=== PATIENT | male | born 1965 | race Caucasian/White ===

== ENCOUNTER → 2016-11-10 | Outpatient (REF) | payer OTHER ==
[2016-11-10 12:13] LABS: EOS # 0.3 K/mm3 (0.0-0.50); EOS % 5.2 % (0.0-3.0); LARGE UNSTAINED CELL # 0.1 K/mm3 (0.0-0.4); LARGE UNSTAINED CELL % 1.7 % (0.0-4.0); LYMPH # 1.6 K/mm3 (1.5-4.5); LYMPH % 29.8 % (24.0-44.0); MEAN CORPUSCULAR HGB CONC 33.2 g/dl (32.0-36.5); MEAN CORPUSCULAR VOLUME 96.3 fl (80.0-96.0); MONO # 0.3 K/mm3 (0.0-0.8); MONO % 5.2 % (0.0-5.0); NEUTROPHILS # 3.1 K/mm3 (1.8-7.7); PLATELET COUNT, AUTOMATED 281 k/mm3 (150-450); RED CELL DISTRIBUTION WIDTH 12.6 % (11.5-14.5); WHITE BLOOD COUNT 5.4 K/mm3 (4.0-10.0)
[2016-11-10 12:41] LABS: ALBUMIN 3.9 GM/DL (3.2-5.2); ALBUMIN/GLOBULIN RATIO 1.11 (1.00-1.93); ALKALINE PHOSPHATASE 113 U/L (45-117); ALT/SGPT 44 U/L (12-78); ANION GAP 6 MEQ/L (8-16); AST/SGOT 21 U/L (15-37); BILIRUBIN,TOTAL 0.7 MG/DL (0.2-1.0); BLOOD UREA NITROGEN 10 MG/DL (7-18); CALCIUM LEVEL 8.5 MG/DL (8.5-10.1); CARBON DIOXIDE LEVEL 27 MEQ/L (21-32); CHLORIDE LEVEL 105 MEQ/L (98-107); CREATININE FOR GFR 0.85 MG/DL (0.70-1.30); GLOMERULAR FILTRATION RATE > 60.0 (>56); GLUCOSE, FASTING 81 MG/DL (70-105); PERCENT SATURATION 30.4 % (19.7-37.4); POTASSIUM SERUM 4.5 MEQ/L (3.5-5.1); SODIUM LEVEL 138 MEQ/L (136-145); TOTAL IRON BINDING CAPACITY 405 UG/DL (250-450); TOTAL PROTEIN 7.4 GM/DL (6.4-8.2)
[2016-11-10 13:34] LABS: ERYTHROCYTE SEDIMENTATION RATE 4 mm/hr (0-20)
[2016-11-11 15:16] LABS: Lyme Disease IgG/IgM Antibodie <0.91 ISR (0.00-0.90); Lyme Disease IgM Ab Quantitati <0.80 index (0.00-0.79)
== END ==
LOC: M LABDRAW1 11:32
PROVIDERS: ATTEND Internal Medicine Rheumatology
DX: M35.9 Systemic involvement of connective tissue, unspecified (principal); R53.83 Other fatigue; E83.40 Disorders of magnesium metabolism, unspecified; Z79.899 Other long term (current) drug therapy

== ENCOUNTER → 2017-05-09 | Outpatient (CLI) | payer OTHER ==
--- NOTE | 2017-05-10 04:29 | REP ---
Clinical: Worsening back pain. Technique: AP, lateral, bilateral oblique and coned-down views of the lumbosacral spine. Comparison: 11/10/2016. Findings: Alignment and lordosis maintained. Moderate to early advanced and mildly progressive multilevel degenerative changes are appreciated including osteophytosis, endplate sclerosis and disc space narrowing. Hypertrophic facet changes at L5-L1 are also identified. No acute fracture / compression injury or subluxation. Impression: Moderate to early advanced multilevel degenerative changes. Findings appear slightly progressive when compared to prior examination. Signed by Rosendo Connor MD 05/10/2017 04:21 A
== END ==
LOC: M LRY 11:46
PROVIDERS: ATTEND Physician Assistant Medical
DX: M54.5 Low back pain (principal); W19.XXXD Unspecified fall, subsequent encounter; Y92.9 Unspecified place or not applicable; X58.XXXD Exposure to other specified factors, subsequent encounter; Y93.9 Activity, unspecified; Y99.8 Other external cause status

== ENCOUNTER → 2018-04-23 | Outpatient (REF) | payer OTHER ==
[2018-04-23 10:50] LABS: HEMATOCRIT 43.7 % (42.0-52.0); HEMOGLOBIN 15.4 g/dl (13.5-17.5); MEAN CORPUSCULAR HEMOGLOBIN 33.5 pg (27.0-33.0); MEAN CORPUSCULAR HGB CONC 35.2 g/dl (32.0-36.5); PLATELET COUNT, AUTOMATED 267 10^3/uL (150-450); RED CELL DISTRIBUTION WIDTH 12.2 % (11.5-14.5)
[2018-04-23 11:20] LABS: ALBUMIN 3.7 GM/DL (3.2-5.2); ALBUMIN/GLOBULIN RATIO 1.09 (1.00-1.93); ALKALINE PHOSPHATASE 101 U/L (45-117); ALT/SGPT 61 U/L (12-78); ANION GAP 7 MEQ/L (8-16); AST/SGOT 24 U/L (7-37); BILIRUBIN,TOTAL 0.5 MG/DL (0.2-1.0); BLOOD UREA NITROGEN 14 MG/DL (7-18); CALCIUM LEVEL 8.5 MG/DL (8.5-10.1); CARBON DIOXIDE LEVEL 25 MEQ/L (21-32); CHLORIDE LEVEL 108 MEQ/L (98-107); CHOLESTEROL LEVEL 111 MG/DL (<200); CREATININE FOR GFR 0.76 MG/DL (0.70-1.30); GLOMERULAR FILTRATION RATE > 60.0 (>56); GLUCOSE, FASTING 112 MG/DL (70-100); HDL CHOLESTEROL 50 MG/DL (>40); LDL CHOLESTEROL 46.2 MG/DL (<100); NON-HDL-C 61 MG/DL; SODIUM LEVEL 140 MEQ/L (136-145); TOTAL PROTEIN 7.1 GM/DL (6.4-8.2); TRIGLYCERIDES LEVEL 74 MG/DL (<150)
== END ==
LOC: M LABDRAW1 10:40
DX: E03.9 Hypothyroidism, unspecified (principal); I25.10 Atherosclerotic heart disease of native coronary artery without angina pectoris
CPT/HCPCS: 84443

== ENCOUNTER → 2018-08-21 | Outpatient (REF) | payer OTHER | LOC: M SFHCADAM 16:35 | DX: G89.29 Other chronic pain (principal) ==

== ENCOUNTER → 2018-08-28 | Outpatient (REF) | LOC: M SMT 12:17 | DX: Z00.00 Encounter for general adult medical examination without abnormal findings (principal) ==

== ENCOUNTER → 2018-09-12 | Outpatient (REF) | payer OTHER ==
[2018-09-18 15:59] LABS: SUMMARY SEE SEPARATE REPORT
== END ==
LOC: M SFHCADAM 19:14
DX: G89.29 Other chronic pain (principal)
CPT/HCPCS: 80307

== ENCOUNTER → 2018-12-12 | Outpatient (CLI) | payer OTHER ==
--- NOTE | 2018-12-12 08:13 | REP ---
Clinical: Primary osteoarthritis. Technique: Neutral and frog lateral views of the right hip. Findings: Mild medial joint space narrowing is appreciated with subtle subchondral sclerosis to the acetabulum. No periarticular calcifications or loose bodies. No erosive changes. Surrounding soft tissues are unremarkable. No acute fracture dislocation. Impression: Mild degenerative changes. Electronically Signed by Rosendo Connor MD 12/12/2018 08:04 A
--- NOTE | 2018-12-12 08:13 | REP ---
Clinical: Primary osteoarthritis. Technique: Single AP weightbearing view of the right and left knee. Findings: Osseous structures, joint spaces, and surrounding soft tissues are normal for age. Impression: Unremarkable examination. Electronically Signed by Rosendo Connor MD 12/12/2018 08:05 A
--- NOTE | 2018-12-12 08:18 | REP ---
Clinical: Primary osteoarthritis. Technique: Internal rotation, external rotation, and Y view of the right and left shoulder. Findings: Right shoulder demonstrates mild cortical irregularity at the acromioclavicular joint glenohumeral joint appears relatively normal for age. Subacromial space is normal. No osteophytosis, periarticular calcifications, or loose bodies are identified. No erosive changes noted. Surrounding soft tissues are unremarkable. Left shoulder demonstrates mild/moderate cortical irregularity at the acromioclavicular joint with subtle early spurring. The subacromial space appears narrowed to 7 mm. The glenohumeral joint appears intact and relatively normal for age. No periarticular calcifications or loose bodies are identified. No erosive changes. Surrounding soft tissues are unremarkable. Impression: Relatively mild arthritic degenerative changes (left greater than right). Electronically Signed by Rosendo Connor MD 12/12/2018 08:09 A
== END ==
LOC: M RAD 07:35
PROVIDERS: ATTEND Internal Medicine Rheumatology
DX: M15.0 Primary generalized (osteo)arthritis (principal)

== ENCOUNTER → 2019-02-14 | Outpatient (REF) | payer OTHER ==
[2019-02-14 14:24] LABS: HEMATOCRIT 46.9 % (42.0-52.0); HEMOGLOBIN 16.2 g/dl (13.5-17.5); MEAN CORPUSCULAR HEMOGLOBIN 32.8 pg (27.0-33.0); MEAN CORPUSCULAR HGB CONC 34.5 g/dl (32.0-36.5); MEAN CORPUSCULAR VOLUME 94.9 fl (80.0-96.0); PLATELET COUNT, AUTOMATED 284 10^3/uL (150-450); RED BLOOD COUNT 4.94 10^6/uL (4.30-6.10); WHITE BLOOD COUNT 6.5 10^3/uL (4.0-10.0)
[2019-02-14 15:16] LABS: ALBUMIN 3.8 GM/DL (3.2-5.2); ALT/SGPT 32 U/L (12-78); BILIRUBIN,TOTAL 0.7 MG/DL (0.2-1.0); BLOOD UREA NITROGEN 10 MG/DL (7-18); CALCIUM LEVEL 8.5 MG/DL (8.5-10.1); CARBON DIOXIDE LEVEL 26 MEQ/L (21-32); CHLORIDE LEVEL 108 MEQ/L (98-107); CHOLESTEROL LEVEL 120 MG/DL (<200); CHOLESTEROL RISK RATIO 2.857 (<5); CREATININE FOR GFR 0.69 MG/DL (0.70-1.30); GLOMERULAR FILTRATION RATE > 60.0 (>56); GLUCOSE, FASTING 87 MG/DL (70-100); HDL CHOLESTEROL 42 MG/DL (>40); LDL CHOLESTEROL 63 MG/DL (<100); NON-HDL-C 78 MG/DL; POTASSIUM SERUM 4.9 MEQ/L (3.5-5.1); SODIUM LEVEL 138 MEQ/L (136-145); TOTAL PROTEIN 7.4 GM/DL (6.4-8.2); TRIGLYCERIDES LEVEL 76 MG/DL (<150)
== END ==
LOC: M SFHCADAM 10:53
PROVIDERS: ATTEND Physician Assistant
DX: I25.10 Atherosclerotic heart disease of native coronary artery without angina pectoris (principal)

== ENCOUNTER → 2019-07-07 | Outpatient (REF) | payer OTHER | LOC: M SFHCPLAZ 13:43 | PROVIDERS: ATTEND Dermatology | DX: D49.2 Neoplasm of unspecified behavior of bone, soft tissue, and skin (principal) ==

== ENCOUNTER → 2021-01-28 | Outpatient (REF) | payer MEDICAID, OTHER | LOC: M SFHCADAM 07:55 | PROVIDERS: ATTEND Physician Assistant | DX: I25.10 Atherosclerotic heart disease of native coronary artery without angina pectoris (principal); M15.0 Primary generalized (osteo)arthritis; F17.210 Nicotine dependence, cigarettes, uncomplicated; Z53.9 Procedure and treatment not carried out, unspecified reason ==

== ENCOUNTER → 2021-01-29 | Outpatient (CLI) | payer MEDICAID, OTHER ==
[2021-01-29 11:41] LABS: HEMATOCRIT 45.9 % (42.0-52.0); HEMOGLOBIN 15.7 g/dl (13.5-17.5); MEAN CORPUSCULAR HEMOGLOBIN 33.2 pg (27.0-33.0); MEAN CORPUSCULAR HGB CONC 34.2 g/dl (32.0-36.5); PLATELET COUNT, AUTOMATED 252 10^3/uL (150-450); RED BLOOD COUNT 4.73 10^6/uL (4.30-6.10); WHITE BLOOD COUNT 6.8 10^3/uL (4.0-10.0)
--- NOTE | 2021-01-29 12:41 | REP ---
INDICATION: PRIMARY GENERALIZED (OSTEO)ARTHRITIS/ LABS 1ST`. COMPARISON: Comparison lumbar spine radiographs are from May 09, 2017.. TECHNIQUE: Five views. FINDINGS: Lumbar vertebral body heights are preserved. There is diffuse degenerative disc disease throughout the lumbar and visualized lower thoracic spine levels. Discogenic spurring in the lumbar spine is most pronounced at L2-3 and L4-5. These findings are essentially unchanged from the 2017 study. Pedicles and posterior elements are intact. There is no evidence of spondylolysis or spondylolisthesis. No fracture or collapse is seen. Psoas margins are symmetric. Sacrum and SI joints are unremarkable. Vascular calcification is seen in a normal caliber aorta. On the AP radiograph there is a mild levoconvex thoracolumbar curvature. Visualized bowel gas pattern is normal. IMPRESSION: Degenerative spondylosis changes radiographically unchanged from 2017 exam. Vascular calcification. No acute abnormality. <Electronically signed by Yossi Oliveros > 01/29/21 [id number]
[2021-01-29 12:50] LABS: ALBUMIN 3.9 GM/DL (3.2-5.2); ALT/SGPT 23 U/L (12-78); BILIRUBIN,TOTAL 0.5 MG/DL (0.2-1.0); BLOOD UREA NITROGEN 8 MG/DL (7-18); CALCIUM LEVEL 9.1 MG/DL (8.5-10.1); CARBON DIOXIDE LEVEL 29 MEQ/L (21-32); CHLORIDE LEVEL 107 MEQ/L (98-107); CHOLESTEROL LEVEL 114 MG/DL (<200); CREATININE FOR GFR 0.66 MG/DL (0.70-1.30); FREE T4 0.99 NG/DL (0.76-1.46); GLOMERULAR FILTRATION RATE > 60.0 (>56); GLUCOSE, FASTING 85 MG/DL (70-100); HDL CHOLESTEROL 44 MG/DL (>40); LDL CHOLESTEROL 54 MG/DL (<100); NON-HDL-C 70 MG/DL; POTASSIUM SERUM 4.3 MEQ/L (3.5-5.1); SODIUM LEVEL 139 MEQ/L (136-145); TOTAL PROTEIN 7.3 GM/DL (6.4-8.2); TRIGLYCERIDES LEVEL 80 MG/DL (<150)
[2021-01-29 12:50] LABS: CREATININE, URINE 20.9 MG/DL; MALB URINE SIEMENS < 5.0 MG/L; MAU/CREAT RATIO 23.9 MCG/MG (0.0-30.0)
== END ==
LOC: M LAB 10:54
PROVIDERS: ATTEND Physician Assistant
DX: I25.10 Atherosclerotic heart disease of native coronary artery without angina pectoris (principal); M15.0 Primary generalized (osteo)arthritis; F17.210 Nicotine dependence, cigarettes, uncomplicated; M54.5 Low back pain; M47.817 Spondylosis without myelopathy or radiculopathy, lumbosacral region

== ENCOUNTER → 2021-04-06 | Outpatient (REF) | payer MEDICAID, OTHER ==
[2021-04-06 11:48] LABS: BASO # 0.1 10^3/uL (0.0-0.2); BASO % 0.9 % (0.0-1.0); EOS # 0.2 10^3/uL (0.0-0.5); EOS % 3.7 % (0.0-3.0); HEMATOCRIT 45.7 % (42.0-52.0); HEMOGLOBIN 15.6 g/dl (13.5-17.5); LYMPH % 35.3 % (24.0-44.0); MEAN CORPUSCULAR HEMOGLOBIN 32.5 pg (27.0-33.0); MEAN CORPUSCULAR HGB CONC 34.1 g/dl (32.0-36.5); MEAN CORPUSCULAR VOLUME 95.2 fl (80.0-96.0); MONO # 0.5 10^3/uL (0.0-0.8); MONO % 8.1 % (2.0-8.0); NEUTROPHILS % 51.8 % (36.0-66.0); PLATELET COUNT, AUTOMATED 270 10^3/uL (150-450); WHITE BLOOD COUNT 5.7 10^3/uL (4.0-10.0)
[2021-04-06 12:21] LABS: ALT/SGPT 21 U/L (12-78); BILIRUBIN,TOTAL 0.5 MG/DL (0.2-1.0); BLOOD UREA NITROGEN 10 MG/DL (7-18); CALCIUM LEVEL 9.2 MG/DL (8.5-10.1); CARBON DIOXIDE LEVEL 25 MEQ/L (21-32); CHLORIDE LEVEL 106 MEQ/L (98-107); CREATININE FOR GFR 0.65 MG/DL (0.70-1.30); GLOMERULAR FILTRATION RATE > 60.0 (>56); GLUCOSE, FASTING 89 MG/DL (70-100); POTASSIUM SERUM 4.4 MEQ/L (3.5-5.1); RHEUMATOID FACTOR QUANT < 10.0 IU/ML (<15.0); SODIUM LEVEL 136 MEQ/L (136-145); TOTAL PROTEIN 7.5 GM/DL (6.4-8.2)
[2021-04-06 12:54] LABS: ERYTHROCYTE SEDIMENTATION RATE 4 mm/hr (0-20)
== END ==
LOC: M SFHCRHEU 10:46
PROVIDERS: ATTEND Internal Medicine Rheumatology
DX: M25.50 Pain in unspecified joint (principal)

== ENCOUNTER → 2021-04-20 | Outpatient (CLI) | payer OTHER ==
--- NOTE | 2021-04-20 10:44 | REP ---
INDICATION: INFLAMMATORY ARTHRITIS. COMPARISON: None. TECHNIQUE: AP, angled, and bilateral oblique views of the bilateral sacroiliac joints. 5 total views. FINDINGS: The sacroiliac (SI) joints demonstrate relatively symmetric age-related changes. There is subtle increased periarticular sclerosis suggested along the superior aspect of the left SI joint. IMPRESSION: Relatively symmetric age-related changes as described above. <Electronically signed by Rosendo Connor > 04/20/21 1045
--- NOTE | 2021-04-20 10:49 | REP ---
INDICATION: INFLAMMATORY ARTHRITIS COMPARISON: None. TECHNIQUE: AP, lateral, bilateral oblique views right and left hand. FINDINGS: Right hand demonstrates moderate osteoarthritic changes of the 2nd through 5th interphalangeal joints including periarticular sclerosis with elements of joint space narrowing and marginal spurring. Slightly more advanced arthritic degenerative changes are identified at the 1st carpometacarpal and metacarpophalangeal joint including periarticular sclerosis, joint space narrowing, cortical irregularity, and spurring as well as small periarticular calcification. No evidence for acute or healed injury. Left hand demonstrates mild/moderate osteoarthritic changes of the interphalangeal joints including periarticular sclerosis with joint space narrowing and very subtle marginal spurring. Moderate osteoarthritic changes are identified involving the 1st metacarpophalangeal and interphalangeal joint including periarticular sclerosis, joint space narrowing, marginal spurring and periarticular calcifications. More advanced arthritic changes are identified at the 1st carpometacarpal joint which also includes chronic subluxation and heterotopic ossification. No evidence for acute or healed injury. IMPRESSION: Osteoarthritic degenerative changes noted bilaterally as detailed above. <Electronically signed by Rosendo Connor > 04/20/21 1043
--- NOTE | 2021-04-20 11:04 | REP ---
INDICATION: INFLAMMATORY ARTHRITIS. COMPARISON: None. TECHNIQUE: Bilateral foot series: Total of 8 views. FINDINGS: Eight views of the feet bilaterally demonstrate overall normal mineralization.. No erosive changes seen. Joint spaces are preserved. There are mild osteophytic spurs seen at the 1st metatarsophalangeal joints bilaterally. This is a little more prominent on the left than the right. There is mild IP joint spurring of the great toe on the left. Developmental fusion is seen in the DIP joints of the 4th and 5th digits on the right and the left foot.. There is an accessory ossicle adjacent to the medial malleolus on the left noted at the ankle. There is mild tibiotalar osteoarthritic spurring on the left.. No opaque foreign body noted. IMPRESSION: Osteoarthritic changes as noted above. No erosive changes appreciated.. <Electronically signed by Yossi Oliveros > 04/20/21 [id number]
== END ==
LOC: M WUC 09:35
PROVIDERS: ATTEND Internal Medicine Rheumatology
DX: M25.50 Pain in unspecified joint (principal); M89.49 Other hypertrophic osteoarthropathy, multiple sites; M19.041 Primary osteoarthritis, right hand; M19.042 Primary osteoarthritis, left hand; M19.071 Primary osteoarthritis, right ankle and foot; M19.072 Primary osteoarthritis, left ankle and foot

== ENCOUNTER → 2021-04-27 | Outpatient (CLI) | payer OTHER ==
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
--- NOTE | 2021-04-27 10:45 | REP ---
INDICATION: CONTUSION COMPARISON: None. TECHNIQUE: AP, lateral, bilateral oblique views left hand. FINDINGS: Degenerative changes are appreciated. Old healed right metacarpal bone fracture suggested. No obvious acute fracture or dislocation identified. IMPRESSION: Arthritic degenerative changes. No acute fracture or dislocation. <Electronically signed by Rosendo Connor > 04/27/21 1044
== END ==
LOC: M WUC 09:41
PROVIDERS: ATTEND Physician Assistant
DX: M19.032 Primary osteoarthritis, left wrist (principal); M19.042 Primary osteoarthritis, left hand; S60.222A Contusion of left hand, initial encounter; S60.212A Contusion of left wrist, initial encounter; X58.XXXA Exposure to other specified factors, initial encounter; Y92.9 Unspecified place or not applicable

== ENCOUNTER 2021-05-13 23:22 | Emergency (ER) | payer OTHER, MEDICAID ==
[~2021-05-13] VITALS: Ht 180.3 cm; Wt 85.4 kg
[2021-05-13] MEDS ORDERED: LIDOCAINE W/EPINEPHRINE 1% 20ML VIAL As Ordered ONE (23:26)
[2021-05-13 23:32] VITALS: BP 170/81
[2021-05-14 00:08] LABS: INR 1.05; PROTHROMBIN TIME 14.1 SECONDS (12.7-14.5)
[2021-05-14 00:09] LABS: PARTIAL THROMBOPLASTIN TIME 30.7 SECONDS (25.9-37.0)
[2021-05-14 00:41] LABS: HEMATOCRIT 46.1 % (42.0-52.0); HEMOGLOBIN 16.3 g/dl (13.5-17.5); MEAN CORPUSCULAR HEMOGLOBIN 32.8 pg (27.0-33.0); MEAN CORPUSCULAR HGB CONC 35.4 g/dl (32.0-36.5); MEAN CORPUSCULAR VOLUME 92.8 fl (80.0-96.0); PLATELET COUNT, AUTOMATED 286 10^3/uL (150-450); RED BLOOD COUNT 4.97 10^6/uL (4.30-6.10); WHITE BLOOD COUNT 10.3 10^3/uL (4.0-10.0)
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
[2021-05-14 01:05] LABS: BLOOD UREA NITROGEN 8 MG/DL (7-18); CALCIUM LEVEL 8.4 MG/DL (8.5-10.1); CARBON DIOXIDE LEVEL 23 MEQ/L (21-32); CHLORIDE LEVEL 107 MEQ/L (98-107); CREATININE FOR GFR 0.75 MG/DL (0.70-1.30); ETHYL ALCOHOL (ETHANOL) 0.263 % (0.000-0.010); GLOMERULAR FILTRATION RATE > 60.0 (>56); GLUCOSE, FASTING 132 MG/DL (70-100); POTASSIUM SERUM 4.1 MEQ/L (3.5-5.1); SODIUM LEVEL 141 MEQ/L (136-145)
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
== END 2021-05-14 01:02 | disposition left against medical advice (07) ==
LOC: M ED 23:22
DX: S01.81XA Laceration without foreign body of other part of head, initial encounter (principal); Y04.8XXA Assault by other bodily force, initial encounter; Y92.099 Unspecified place in other non-institutional residence as the place of occurrence of the external cause; Y93.9 Activity, unspecified; Y99.9 Unspecified external cause status; Z53.9 Procedure and treatment not carried out, unspecified reason; I25.10 Atherosclerotic heart disease of native coronary artery without angina pectoris; F17.200 Nicotine dependence, unspecified, uncomplicated; M25.70 Osteophyte, unspecified joint; M48.02 Spinal stenosis, cervical region